=== PATIENT | female | born 2000 | race Caucasian/White ===

== ENCOUNTER 2022-10-02 13:52 | Emergency (ER) | payer SELFPAY ==
[~2022-10-02] VITALS: Ht 165 cm; Wt 81.6 kg
[2022-10-02 14:15] LABS: BILIRUBIN,URINE NEGATIVE (NEGATIVE); CLARITY,URINE CLEAR; COLOR,URINE YELLOW; GLUCOSE, URINE (UA) NEGATIVE (NEGATIVE); KETONES,URINE NEGATIVE (NEGATIVE); LEUKOCYTE ESTERASE ,URINE 1+ (NEGATIVE); NITRITE,URINE NEGATIVE (NEGATIVE); PH,URINE 7.5 (5-9); PROTEIN,URINE NEGATIVE (NEGATIVE)
--- NOTE | 2022-10-02 14:22 | ED GI ---
General Chief Complaint: Abdominal/GI Problems Stated Complaint: ABD PAIN | BLOOD IN STOOL Source of Information: Patient Exam Limitations: No Limitations (CORRIE MORALES APRN) History of Present Illness Date Seen by Provider: October 02, 2022 Time Seen by Provider: 13:59 Initial Comments 22-year-old female presents to the ED with complaints of blood in her stool since yesterday. States that last night she had a bowel movement with bright red blood. States this morning she did not have a bowel movement, but still had bleeding from her rectum. Reports there is a small amount of toilet this morning, and more when she wiped. She is also complaining of sharp pain at her bellybutton, bilateral lower abdominal and bilateral lower back pain. She reports urinary frequency and dysuria. Last menstrual cycle was 09/13/2022. States she feels feverish, unsure if she has been running a fever. Denies chest pain, shortness of air, nausea, vomiting, diarrhea. (CORRIE MORALES APRN) Allergies and Home Medications Allergies Coded Allergies: No Known Drug Allergies (Unverified , 10/02/22) Patient Home Medication List Home Medication List Reviewed: Yes (CORRIE MORALES APRN) Nitrofurantoin Monohyd/M-Cryst (Macrobid 100 mg Capsule) 100 Mg Capsule, 1 TAB PO BID Prescribed by: Corrie Morales on 10/02/22 1510 Review of Systems Review of Systems Constitutional: see HPI (CORRIE MORALES APRN) Physical Exam Vital Signs Vital Signs - First Documented 10/02/22 14:02 Temp 37.0 Pulse 86 Resp 14 B/P (MAP) 116/70 (85) Pulse Ox 98 O2 Delivery Room Air (MARCO CASTANEDA MD) Vital Signs Capillary Refill : (CORRIE MORALES APRN) Height/Weight/BMI Height: '" Weight: lbs. oz. kg; BMI Method: General Appearance: WD/WN, no apparent distress Neck: supple, normal inspection Respiratory: lungs clear, normal breath sounds, no respiratory distress, no accessory muscle use Cardiovascular: regular rate, rhythm Gastrointestinal: normal bowel sounds, soft, tenderness (Mild generalized tenderness, worse in the lower quadrants) Rectal: heme positive stool (No blood visible, but fecal occult test positive), hemorrhoids (Possible internal hemorrhoids palpated) Extremities: normal range of motion, normal inspection Neurologic/Psychiatric: alert, normal mood/affect Skin: normal color, warm/dry (CORRIE MORALES APRN) Progress/Results/Core Measures Results/Orders Lab Results Laboratory Tests Test 10/02/22 14:10 10/02/22 14:18 Range/Units Urine Color YELLOW Urine Clarity CLEAR Urine pH 7.5 5-9 Urine Specific [place] 1.015 L 1.016-1.022 Urine Protein NEGATIVE NEGATIVE Urine Glucose (UA) NEGATIVE NEGATIVE Urine Ketones NEGATIVE NEGATIVE Urine Nitrite NEGATIVE NEGATIVE Urine Bilirubin NEGATIVE NEGATIVE Urine Urobilinogen 0.2 < = 1.0 MG/DL Urine Leukocyte Esterase 1+ H NEGATIVE Urine RBC (Auto) NEGATIVE NEGATIVE Urine RBC NONE /HPF Urine WBC 2-5 /HPF Urine Squamous Epithelial Cells 25-50 H /HPF Urine Crystals NONE /LPF Urine Bacteria FEW H /HPF Urine Casts NONE /LPF Urine Mucus NEGATIVE /LPF Urine Culture Indicated NO White Blood Count 9.1 4.3-11.0 10^3/uL Red Blood Count 4.90 3.80-5.11 10^6/uL Hemoglobin 13.1 11.5-16.0 g/dL Hematocrit 41 35-52 % Mean Corpuscular Volume 83 80-99 fL Mean Corpuscular Hemoglobin 27 25-34 pg Mean Corpuscular Hemoglobin Concent 32 32-36 g/dL Red Cell Distribution Width 14.1 10.0-14.5 % Platelet Count 242 130-400 10^3/uL Mean Platelet Volume 9.0 9.0-12.2 fL Immature Granulocyte % (Auto) 0 % Neutrophils (%) (Auto) 69 42-75 % Lymphocytes (%) (Auto) 24 12-44 % Monocytes (%) (Auto) 5 0-12 % Eosinophils (%) (Auto) 1 0-10 % Basophils (%) (Auto) 0 0-10 % Neutrophils # (Auto) 6.2 1.8-7.8 X 10^3 Lymphocytes # (Auto) 2.2 1.0-4.0 X 10^3 Monocytes # (Auto) 0.5 0.0-1.0 X 10^3 Eosinophils # (Auto) 0.1 0.0-0.3 10^3/uL Basophils # (Auto) 0.0 0.0-0.1 10^3/uL Immature Granulocyte # (Auto) 0.0 0.0-0.1 10^3/uL Sodium Level 138 135-145 MMOL/L Potassium Level 4.0 3.6-5.0 MMOL/L Chloride Level 106 98-107 MMOL/L Carbon Dioxide Level 22 21-32 MMOL/L Anion Gap 10 5-14 MMOL/L Blood Urea Nitrogen 14 7-18 MG/DL Creatinine 0.66 0.60-1.30 MG/DL Estimat Glomerular Filtration Rate 127 BUN/Creatinine Ratio 21 Glucose Level 84 70-105 MG/DL Calcium Level 9.3 8.5-10.1 MG/DL Corrected Calcium 9.0 8.5-10.1 MG/DL Total Bilirubin 0.4 0.1-1.0 MG/DL Aspartate Amino Transf (AST/SGOT) 12 5-34 U/L Alanine Aminotransferase (ALT/SGPT) 16 0-55 U/L Alkaline Phosphatase 64 40-136 U/L C-Reactive Protein High Sensitivity 0.76 H 0.00-0.50 MG/DL Total Protein 7.3 6.4-8.2 GM/DL Albumin 4.4 3.2-4.5 GM/DL Amylase Level 62 25-125 U/L Lipase 22 8-78 U/L (MARCO CASTANEDA MD) Vital Signs/I&O 10/02/22 10/02/22 14:02 15:21 Temp 37.0 37.0 Pulse 86 69 Resp 14 14 B/P (MAP) 116/70 (85) 106/69 Pulse Ox 98 98 O2 Delivery Room Air Room Air (MARCO CASTANEDA MD) Progress Progress Note : Time: 14:22 Progress Note Patient seen and evaluated, resting comfortably in bed, no acute distress. Based on exam and symptoms, work-up initiated including CBC, CMP, amylase, lipase, CRP, fecal occult, UA, urine . 1506 Labs reviewed. Urine negative. CBC grossly normal. CBC grossly normal. CRP slightly elevated 0.76. UA shows 1+ leukocytes, 2-5 WBCs, 25-50 squamous epithelial cells, few bacteria. Possibly contaminated, but will go ahead and treat due to patient being symptomatic. Results discussed with patient. Patient instructed to follow-up with surgery regarding rectal bleeding. Discharge instructions and return precautions provided. (CORRIE MORALES APRN) Departure Impression Primary Impression: Rectal bleeding Additional Impression: UTI (urinary tract infection) Disposition: 01 HOME, SELF-CARE Condition: Stable Departure-Patient Inst. Decision time for Depature: 15:08 (CORRIE MORALES APRN) Referrals: KAVYA ZACARIAS DO NO,LOCAL PHYSICIAN (PCP) Primary Care Physician Patient Instructions: Bloody Stools, Adult (DC), Urinary Tract Infection, Adult ED Add. Discharge Instructions: Complete full course of antibiotic, even if you begin to feel better. Follow-up with surgery for the rectal bleeding, call them to schedule appointment. Return for increase in bleeding, dizziness, lightheadedness, passing out, chest pain, shortness of air, fever, inability to urinate, or any other new, concerning, or worsening symptoms. All discharge instructions reviewed with patient and/or family. Voiced understanding. Scripts Nitrofurantoin Monohyd/M-Cryst (Macrobid 100 mg Capsule) 100 Mg Capsule 1 TAB PO BID for 5 Days, #10 CAP 0 Refills Prov: CORRIE MORALES APRN 10/02/22 ATTENDING PHYSICIAN NOTE: I was physically present as attending physician in the emergency department during the care of this patient, but I was not directly involved in the decision making or delivery of care for this patient. (MARCO CASTANEDA MD) CORRIE MORALES APRN October 02, 2022 14:22 MARCO CASTANEDA MD October 03, 2022 06:28
[2022-10-02 14:30] LABS: BACTERIA,URINE FEW /HPF; SQUAMOUS EPITHELIAL CELL,UR 25-50 /HPF
[2022-10-02 14:31] LABS: BASOPHILS % (AUTO) 0 % (0-10); EOSINOPHILS # (AUTO) 0.1 10^3/uL (0.0-0.3); EOSINOPHILS % (AUTO) 1 % (0-10); HEMATOCRIT 41 % (35-52); HEMOGLOBIN 13.1 g/dL (11.5-16.0); LYMPHOCYTES # (AUTO) 2.2 X 10^3 (1.0-4.0); LYMPHOCYTES % (AUTO) 24 % (12-44); MEAN CORPUSCULAR HEMOGLOBIN 27 pg (25-34); MEAN CORPUSCULAR HGB CONC 32 g/dL (32-36); MEAN CORPUSCULAR VOLUME 83 fL (80-99); MONOCYTES # (AUTO) 0.5 X 10^3 (0.0-1.0); MONOCYTES % (AUTO) 5 % (0-12); NEUTROPHILS # (AUTO) 6.2 X 10^3 (1.8-7.8); NEUTROPHILS % (AUTO) 69 % (42-75); PLATELET COUNT 242 10^3/uL (130-400); WHITE BLOOD COUNT 9.1 10^3/uL (4.3-11.0)
[2022-10-02 14:37] LABS: ALBUMIN 4.4 GM/DL (3.2-4.5)
[2022-10-02 14:38] LABS: CALCIUM 9.3 MG/DL (8.5-10.1)
[2022-10-02 14:39] LABS: TOTAL PROTEIN 7.3 GM/DL (6.4-8.2)
[2022-10-02 14:41] LABS: BILIRUBIN,TOTAL 0.4 MG/DL (0.1-1.0)
[2022-10-02 14:43] LABS: CREATININE SERUM 0.66 MG/DL (0.60-1.30)
[2022-10-02] MEDS ORDERED: NITR-65 PO (15:10)
[2022-10-02 15:21] VITALS: BP 106/69
== END 2022-10-02 15:22 | disposition home or self-care (01) ==
LOC: ER 13:56
DX: K62.5 Hemorrhage of anus and rectum (principal); N39.0 Urinary tract infection, site not specified
CPT/HCPCS: 36415; 80053; 81000; 82150; 82274; 83690; 84703; 85025; 86141